=== PATIENT | female | born 1990 | race Caucasian/White ===

== ENCOUNTER 2022-03-01 18:45 | Emergency (ER) | payer OTHER, SELFPAY ==
--- NOTE | ~2022-03-01 | US_ITS ---
EXAMINATION: US OBSTETRICAL ULTRASOUND CLINICAL INFORMATION: Vaginal bleeding, positive hCG. LMP 01/29/2022 corresponding to a gestational age of 4 weeks and 3 days, [place] 11/05/2022. COMPARISON: No similar priors.. LMP: 01/29/2022. Gestational age by maternal dates is 4 weeks and 3 days. Estimated date of delivery by maternal dates is 11/05/2022. TECHNIQUE: Ultrasound of the maternal pelvis is performed using transabdominal and transvaginal transducers. Transvaginal imaging is performed due to inadequate visualization transabdominally. M-mode Doppler is also performed. FINDINGS: Anteverted uterus measuring 6.6 x 2.7 x 4 cm. The endometrium measures 0.6 cm in thickness. No evidence of intrauterine gestational sac. The ovaries are normal in morphology. The right ovary measures 2 x 1.2 x 2 cm and the left ovary measures 2.8 x 2.4 x 2.2 cm. There is a 1.4 cm corpus luteal cyst in the left ovary. No free fluid. US/US OB pelvic and transvaginal IMPRESSION: No sonographic evidence of intrauterine gestation which could be due to early gestational age. Recommend correlation with quantitative hCG and a short-term follow-up pelvic ultrasound. No adnexal mass. No free fluid.
[2022-03-01 19:01] VITALS: BP 134/73; PULSE 88; RESP 18; TEMP 36.7; O2SAT 100; BMI 34.5
--- NOTE | 2022-03-01 19:02 | ED_ITS ---
HPI - Abdominal Pain General Chief Complaint: Vaginal Bleeding <Coty Valle NP - Last Filed: 03/01/22 19:05> Stated Complaint: 4 weeks and bleeding <Coty Valle NP - Last Filed: 03/01/22 19:05> Time Seen by Provider: 03/01/22 20:48 <Coty Valle NP - Last Filed: 03/01/22 19:05> Source: patient <CLAUDE Forde - Last Filed: 03/02/22 00:26> Mode of arrival: ambulatory <CLAUDE Forde - Last Filed: 03/02/22 00:26> Limitations: no limitations <CLAUDE Forde - Last Filed: 03/02/22 00:26> History of Present Illness HPI narrative: 31-year-old female with no known medical history presents to the emergency department with complaints of vaginal bleeding that started today. According to patient she had a positive test on 02/25/2022, her last menstrual period was 01/29/2022. Patient reports intermittent crampy abdominal pain. She reports that she is spotting dark red/pink colored blood. She tells me she has not bled through any pads. She tells me she has been trying to get naturally. She has been taking vitamins every day. She has not yet seen director of casework however she is scheduled to see OBGYN on the . Patient has no known hyper or hypocoagulable disorders. Patient denies fevers, chills, nausea, vomiting, headache, vision changes, chest pain, shortness of breath, back pain, vaginal discharge <CLAUDE Forde - Last Filed: 03/02/22 00:26> Related Data Allergies/Adverse Reactions: Allergies Allergy/AdvReac Type Severity Reaction Status Date / Time No Known Allergies Allergy Verified 03/01/22 19:03 <Coty Valle NP - Last Filed: 03/01/22 19:05> Review of Systems Review of Systems Constitutional : No Weight loss, No Fever, No Chills, No Fatigue, No Malaise ENT/Mouth : No sore throat, No Rhinorrhea Eyes: No Eye Pain, No Swelling, No Redness Cardiovascular : No Chest Pain, No SOB, No Dyspnea on Exertion, No Orthopnea, No Edema, No Palpitations Respiratory : No Cough, No Sputum, No Wheezing Gastrointestinal : No Nausea, No Vomiting, No Diarrhea, No Constipation, + abdominal Pain, No Hematochezia, No Melena Genitourinary : No Dysuria, No Urinary Frequency, No Hematuria, + vaginal bleeding Musculoskeletal : No joint pain, No Myalgias, No Joint Swelling Skin : No Skin Lesions, No rash Neuro : No Weakness, No Numbness, No Dizziness, No Headache Psych : No Anxiety/Panic, No Depression Heme/Lymph: No Bruising, No Bleeding,No Lymphadenopathy Endocrine : No Polyuria, No Polydipsia All other systems reviewed and are negative <CLAUDE Forde - Last Filed: 03/02/22 00:26> Yes all other systems are reviewed and are negative <CLAUDE Forde - Last Filed: 03/02/22 00:26> [facility] Past Medical History Attestation statement: The following information was validated with the patient. <CLAUDE Forde - Last Filed: 03/02/22 00:26> Source: old records reviewed and nursing notes reviewed <CLAUDE Forde - Last Filed: 03/02/22 00:26> Social History Social History: Social History Advance Directives: No Advance Directives Information Provided: No <Coty Valle NP - Last Filed: 03/01/22 19:05> Physical Exam ED Vital Signs: Vital Signs - 24 hr 03/01/22 19:01 Temperature 98.0 F Pulse Rate 88 Respiratory Rate 18 Blood Pressure 134/73 Pulse Oximetry 100 Oxygen Delivery Method Room Air BMI result Body Mass Index 34.5 <Coty Valle NP - Last Filed: 03/01/22 19:05> Vital Signs - 24 hr 03/01/22 19:01 Temperature 98.0 F Pulse Rate 88 Respiratory Rate 18 Blood Pressure 134/73 Pulse Oximetry 100 Oxygen Delivery Method Room Air BMI result Body Mass Index 34.5 vss <CLAUDE Forde - Last Filed: 03/02/22 00:26> Appearance: Alert.? Oriented X3.? No acute distress.? Head: Normocephalic, atraumatic, no step-offs or deformities Eyes: Pupils equal, round and reactive to light.? ENT: Pharynx normal.? Neck: Normal inspection.? Neck supple.? CVS: Normal heart rate and rhythm.? Pulses normal.? Respiratory: No respiratory distress.? Breath sounds normal.? Abdomen: Soft and nontender.? Skin: Skin warm and dry.? Normal skin color.? Normal skin turgor.? Extremities: No lower extremity edema.? No calf ttp. 5/5 strength to bilateral upper and lower extremities Back: No midline tenderness, no C-spine tenderness, full range of motion, no CVA tenderness bilaterally Sensitive exam: Chaperoned by Quynh Jacobs. Patient's cervix appears slightly open no products of conception with in cervical os there is a [id number] amount of dark red blood within the vaginal canal. No lesions lumps or masses. No pain with bimanual exam. No adnexal tenderness. Neuro: Oriented X 3.? No motor deficit.? No sensory deficit. CN 2-12 intact <CLAUDE Forde - Last Filed: 03/02/22 00:26> Course Course Course Narrative: This is a rapid medical exam. Defer additional HPI, ROS and PE to prior provider.. 31 yo female healthy here with complaints of vaginal bleeding today. No abdominal pain or cramping. Patient's last menstrual period was 01/29. Patient had a home test that was positive on February 25. Patient has upcoming appointment with a OB doctor on March 15 at [facility] in [place]. Patient has not had any ultrasound her care to this point. Will obtain labs, UA. VSS <Coty Valle NP - Last Filed: 03/01/22 19:05> Reevaluation(s) Reevaluation #1: CBC appears to be within normal limits, no signs of anemia. Chemistry with no acute electrolyte abnormalities requiring intervention. Beta hCG 7, urine negative. UA without infection however, with large amount of blood likely secondary to vaginal bleeding. Pelvic ultrasound with no sonographic evidence of intrauterine gestation which could be due to early gestation age or again miscarriage. No adnexal mass. No free fluid. Patient is blood type A positive. Therefore patient does not require RhoGAM. I will have patient follow-up with OBGYN. Advised her to come in for repeat hCG and ultrasound in 48 hours. Gave her strict return precautions. Educated patient on diagnosis and treatment plan, answered all question, patient verbalizes understanding. At this time patient will be discharged home, advised to return with new or worsening symptoms. Educated on worrisome signs and symptoms and when to return. At this time I feel comfortable discharge home. To note this case was discussed with my attending who agrees w/ my diagnosis and treatment plan. <CLAUDE Forde - Last Filed: 03/02/22 00:26> Time: 00:21 <CLAUDE Forde - Last Filed: 03/02/22 00:26> Medical Decision Making Medical Decision Making MDM Narrative: 31-year-old female with a positive home test on February 25 last menstrual period on 01/29/2022 presents with vaginal spotting, lower abdominal cramping that is intermittent in nature. Is currently trying to get . Taking vitamins. Physical exam significant for Patient's cervix appears slightly open no products of conception with in cervical os there is a [id number] amount of dark red blood within the vaginal canal. No lesions lumps or masses. No pain with bimanual exam. No adnexal tenderness. To note patient's abdomen is not tender on exam Concerns for threatened or bleeding in 1st trimester verses menorrhagia. Based off patient's history and physical exam low suspicion for ovarian torsion, ectopic , intra-abdominal etiologies such as appendi citis, diverticulitis, pancreatitis or cholecystitis, no signs of acute abdomen. Plan at this time blood type, basic labs, hCG, imaging. <CLAUDE Forde - Last Filed: 03/02/22 00:26> Differential Diagnosis Differential Diagnoses: The differential diagnosis associated with the presentation includes <CLAUDE Forde Last Filed: 03/02/22 00:26> Concerns for threatened or bleeding in 1st trimester verses menorrhagia. Based off patient's history and physical exam low suspicion for ovarian torsion, ectopic , intra-abdominal etiologies such as appendicitis, diverticulitis, pancreatitis or cholecystitis, no signs of acute abdomen. <CLAUDE Forde - Last Filed: 03/02/22 00:26> Admission/Observation Consideration of admission/observation: Escalation of care including admission/observation considered <CLAUDE Forde - Last Filed: 03/02/22 00:26> Unlikely <CLAUDE Forde - Last Filed: 03/02/22 00:26> Lab Data MDM Lab Attestation statement: I reviewed the patient's lab results. <CLAUDE Forde - Last Filed: 03/02/22 00:26> Result Diagrams: 03/01/22 19:11 03/01/22 19:11 <Coty Valle NP - Last Filed: 03/01/22 19:05> Labs: Lab Results 03/01/22 03/01/22 03/01/22 Range/Units 19:11 19:11 19:25 WBC 10.5 (4.8-10.8) X10*3/uL RBC 4.31 (4.20-5.50) X10*6/uL Hgb 12.6 (12.0-16.0) g/dl Hct 37.7 (37.0-47.0) % MCV 87.5 (80.0-98.0) fL MCH 29.2 (27.0-33.0) pg MCHC 33.4 (31.0-35.0) g/dl RDW 13.4 (11.0-16.0) % Plt Count 338 (160-400) X10*3/uL MPV 9.8 (9.4-12.3) fL Immature Gran % (Auto) 0.2 (0.0-0.4) % Neut % (Auto) 52.8 (45-73) % Lymph % (Auto) 34.1 (20-40) % Payette % (Auto) 8.3 (2-11) % Eos % (Auto) 4.0 (0-4) % Baso % (Auto) 0.6 (0-2) % Lymph # (Auto) 3.6 (1.2-4.9) X10*3/uL Payette # (Auto) 0.9 (0.1-1.2) X10*3/uL Eos # (Auto) 0.4 (0.0-0.4) X10*3/uL Baso # (Auto) 0.1 (0.0-0.2) X10*3/uL Abs Immat Gran (auto) 0.02 (0.00-0.03) X10*3/uL Absolute Neuts (auto) 5.5 (2.0-8.3) x10*3/uL Absolute Nucleated RBC 0.000 (0.0-0.012) X10*3/uL Nucleated RBC % (auto) 0.0 (0.0-0.2) /100WBC Sodium 139 (135-145) mmol/L Potassium 4.1 (3.3-5.1) mmol/L Chloride 105 (96-108) mmol/L Carbon Dioxide 26 (22-29) mmol/L Anion Gap 12 (12-20) BUN 5 L (9-16) mg/dL Creatinine 0.68 (0.5-1.4) mg/dL Estim Creat Clear Calc 109.8 Estimated GFR > 60 Random Glucose 103 (60-115) mg/dL Calcium 9.2 (8.4-10.2) mg/dL Total Bilirubin 0.3 (0.0-1.0) mg/dL Direct Bilirubin < 0.2 (0.0-0.5) mg/dL AST 13 (5-31) U/L ALT 11 (0-31) U/L Alkaline Phosphatase 78 (39-117) U/L Total Protein 7.4 (6.5-8.0) g/dL Albumin 3.9 (3.5-5.0) g/dL Beta HCG, Quant 7 mIU/mL Urine Color Yellow Urine Appearance Clear Urine pH 7.0 (5.0-9.0) Ur Specific Kennard <= 1.005 (1.005-1.025) Urine Protein Negative (Neg-Trace) mg/dL Urine Glucose (UA) Negative (Negative) mg/dL Urine Ketones Negative (Negative) mg/dL Urine Blood Large (3+) H (Negative) Urine Nitrite Negative (Negative) Ur Leukocyte Esterase Moderate (2+) H (Negative) Urine RBC 6-10 H (0-2) /HPF Urine WBC 11-20 H (0-5) /HPF Ur Squamous Epith Cells 3-5 (0-2) /HPF Urine Bacteria None Seen (None Seen) Hyaline Casts 0-2 (0-2) /LPF Urine Test (NEGATIVE) Blood Type 03/01/22 03/01/22 Range/Units 19:25 22:42 WBC (4.8-10.8) X10*3/uL RBC (4.20-5.50) X10*6/uL Hgb (12.0-16.0) g/dl Hct (37.0-47.0) % MCV (80.0-98.0) fL MCH (27.0-33.0) pg MCHC (31.0-35.0) g/dl RDW (11.0-16.0) % Plt Count (160-400) X10*3/uL MPV (9.4-12.3) fL Immature Gran % (Auto) (0.0-0.4) % Neut % (Auto) (45-73) % Lymph % (Auto) (20-40) % Payette % (Auto) (2-11) % Eos % (Auto) (0-4) % Baso % (Auto) (0-2) % Lymph # (Auto) (1.2-4.9) X10*3/uL Payette # (Auto) (0.1-1.2) X10*3/uL Eos # (Auto) (0.0-0.4) X10*3/uL Baso # (Auto) (0.0-0.2) X10*3/uL Abs Immat Gran (auto) (0.00-0.03) X10*3/uL Absolute Neuts (auto) (2.0-8.3) x10*3/uL Absolute Nucleated RBC (0.0-0.012) X10*3/uL Nucleated RBC % (auto) (0.0-0.2) /100WBC Sodium (135-145) mmol/L Potassium (3.3-5.1) mmol/L Chloride (96-108) mmol/L Carbon Dioxide (22-29) mmol/L Anion Gap (12-20) BUN (9-16) mg/dL Creatinine (0.5-1.4) mg/dL Estim Creat Clear Calc Estimated GFR Random Glucose (60-115) mg/dL Calcium (8.4-10.2) mg/dL Total Bilirubin (0.0-1.0) mg/dL Direct Bilirubin (0.0-0.5) mg/dL AST (5-31) U/L ALT (0-31) U/L Alkaline Phosphatase (39-117) U/L Total Protein (6.5-8.0) g/dL Albumin (3.5-5.0) g/dL Beta HCG, Quant mIU/mL Urine Color Urine Appearance Urine pH (5.0-9.0) Ur Specific Kennard (1.005-1.025) Urine Protein (Neg-Trace) mg/dL Urine Glucose (UA) (Negative) mg/dL Urine Ketones (Negative) mg/dL Urine Blood (Negative) Urine Nitrite (Negative) Ur Leukocyte Esterase (Negative) Urine RBC (0-2) /HPF Urine WBC (0-5) /HPF Ur Squamous Epith Cells (0-2) /HPF Urine Bacteria (None Seen) Hyaline Casts (0-2) /LPF Urine Test NEGATIVE (NEGATIVE) Blood Type A Positive <Coty Valle NP - Last Filed: 03/01/22 19:05> Lab Results 03/01/22 03/01/22 03/01/22 Range/Units 19:11 19:11 19:25 WBC 10.5 (4.8-10.8) X10*3/uL RBC 4.31 (4.20-5.50) X10*6/uL Hgb 12.6 (12.0-16.0) g/dl Hct 37.7 (37.0-47.0) % MCV 87.5 (80.0-98.0) fL MCH 29.2 (27.0-33.0) pg MCHC 33.4 (31.0-35.0) g/dl RDW 13.4 (11.0-16.0) % Plt Count 338 (160-400) X10*3/uL MPV 9.8 (9.4-12.3) fL Immature Gran % (Auto) 0.2 (0.0-0.4) % Neut % (Auto) 52.8 (45-73) % Lymph % (Auto) 34.1 (20-40) % Payette % (Auto) 8.3 (2-11) % Eos % (Auto) 4.0 (0-4) % Baso % (Auto) 0.6 (0-2) % Lymph # (Auto) 3.6 (1.2-4.9) X10*3/uL Payette # (Auto) 0.9 (0.1-1.2) X10*3/uL Eos # (Auto) 0.4 (0.0-0.4) X10*3/uL Baso # (Auto) 0.1 (0.0-0.2) X10*3/uL Abs Immat Gran (auto) 0.02 (0.00-0.03) X10*3/uL Absolute Neuts (auto) 5.5 (2.0-8.3) x10*3/uL Absolute Nucleated RBC 0.000 (0.0-0.012) X10*3/uL Nucleated RBC % (auto) 0.0 (0.0-0.2) /100WBC Sodium 139 (135-145) mmol/L Potassium 4.1 (3.3-5.1) mmol/L Chloride 105 (96-108) mmol/L Carbon Dioxide 26 (22-29) mmol/L Anion Gap 12 (12-20) BUN 5 L (9-16) mg/dL Creatinine 0.68 (0.5-1.4) mg/dL Estim Creat Clear Calc 109.8 Estimated GFR > 60 Random Glucose 103 (60-115) mg/dL Calcium 9.2 (8.4-10.2) mg/dL Total Bilirubin 0.3 (0.0-1.0) mg/dL Direct Bilirubin < 0.2 (0.0-0.5) mg/dL AST 13 (5-31) U/L ALT 11 (0-31) U/L Alkaline Phosphatase 78 (39-117) U/L Total Protein 7.4 (6.5-8.0) g/dL Albumin 3.9 (3.5-5.0) g/dL Beta HCG, Quant 7 mIU/mL Urine Color Yellow Urine Appearance Clear Urine pH 7.0 (5.0-9.0) Ur Specific Kennard <= 1.005 (1.005-1.025) Urine Protein Negative (Neg-Trace) mg/dL Urine Glucose (UA) Negative (Negative) mg/dL Urine Ketones Negative (Negative) mg/dL Urine Blood Large (3+) H (Negative) Urine Nitrite Negative (Negative) Ur Leukocyte Esterase Moderate (2+) H (Negative) Urine RBC 6-10 H (0-2) /HPF Urine WBC 11-20 H (0-5) /HPF Ur Squamous Epith Cells 3-5 (0-2) /HPF Urine Bacteria None Seen (None Seen) Hyaline Casts 0-2 (0-2) /LPF Urine Test (NEGATIVE) Blood Type 03/01/22 03/01/22 Range/Units 19:25 22:42 WBC (4.8-10.8) X10*3/uL RBC (4.20-5.50) X10*6/uL Hgb (12.0-16.0) g/dl Hct (37.0-47.0) % MCV (80.0-98.0) fL MCH (27.0-33.0) pg MCHC (31.0-35.0) g/dl RDW (11.0-16.0) % Plt Count (160-400) X10*3/uL MPV (9.4-12.3) fL Immature Gran % (Auto) (0.0-0.4) % Neut % (Auto) (45-73) % Lymph % (Auto) (20-40) % Payette % (Auto) (2-11) % Eos % (Auto) (0-4) % Baso % (Auto) (0-2) % Lymph # (Auto) (1.2-4.9) X10*3/uL Payette # (Auto) (0.1-1.2) X10*3/uL Eos # (Auto) (0.0-0.4) X10*3/uL Baso # (Auto) (0.0-0.2) X10*3/uL Abs Immat Gran (auto) (0.00-0.03) X10*3/uL Absolute Neuts (auto) (2.0-8.3) x10*3/uL Absolute Nucleated RBC (0.0-0.012) X10*3/uL Nucleated RBC % (auto) (0.0-0.2) /100WBC Sodium (135-145) mmol/L Potassium (3.3-5.1) mmol/L Chloride (96-108) mmol/L Carbon Dioxide (22-29) mmol/L Anion Gap (12-20) BUN (9-16) mg/dL Creatinine (0.5-1.4) mg/dL Estim Creat Clear Calc Estimated GFR Random Glucose (60-115) mg/dL Calcium (8.4-10.2) mg/dL Total Bilirubin (0.0-1.0) mg/dL Direct Bilirubin (0.0-0.5) mg/dL AST (5-31) U/L ALT (0-31) U/L Alkaline Phosphatase (39-117) U/L Total Protein (6.5-8.0) g/dL Albumin (3.5-5.0) g/dL Beta HCG, Quant mIU/mL Urine Color Urine Appearance Urine pH (5.0-9.0) Ur Specific Kennard (1.005-1.025) Urine Protein (Neg-Trace) mg/dL Urine Glucose (UA) (Negative) mg/dL Urine Ketones (Negative) mg/dL Urine Blood (Negative) Urine Nitrite (Negative) Ur Leukocyte Esterase (Negative) Urine RBC (0-2) /HPF Urine WBC (0-5) /HPF Ur Squamous Epith Cells (0-2) /HPF Urine Bacteria (None Seen) Hyaline Casts (0-2) /LPF Urine Test NEGATIVE (NEGATIVE) Blood Type A Positive <CLAUDE Forde - Last Filed: 03/02/22 00:26> Independent Interpretation I performed an independent interpretation of an: Ultrasound <CLAUDE Forde - Last Filed: 03/02/22 00:26> Radiology Impression Discussion of test interpretation with radiology: I have reviewed the radiologist's reading. <CLAUDE Forde Last Filed: 03/02/22 00:26> Core Measures AMI core measures followed: Yes <CLAUDE Forde Last Filed: 03/02/22 00:26> Measure exclusions: not indicated <CLAUDE Forde Last Filed: 03/02/22 00:26> Critical Care Time Critical Care Time Critical Care Time: No <CLAUDE Forde - Last Filed: 03/02/22 00:26> Discharge Plan Discharge Clinical Impression: Threatened , Vaginal bleeding <Coty Valle NP - Last Filed: 03/01/22 19:05> Patient Disposition: Home, Self-Care <Coty Valle NP - Last Filed: 03/01/22 19:05> Instructions: Threatened Miscarriage (ED) <Coty Valle NP - Last Filed: 03/01/22 19:05> Additional Instructions: Take your medications as prescribed. If you were prescribed antibiotics today, it is important that you take your medication to their entirety, do not skip any doses, do not finish them early. Follow-up with your primary care provider this week. Return to the emergency department with new or worsening symptoms. Such as fevers, chills, chest pain, shortness of breath, nausea, vomiting, dizziness, headache, vision changes, lethargy In case of emergency call 911 Take Tylenol as needed for discomfort do not exceed maximum daily dose. Your beta hCG today was 7. Your blood type was A positive. Ultrasound results below. There was no signs of anemia or infection on your labs today. You should have repeat beta HCG done in 48 hours and you should also have a repeat ultrasound. Please follow-up with OBGYN as soon as possible. Continue taking her vitamins. If you are bleeding through more than 2 pads in 1 hour, if you have worsening abdominal pain or a change in the quality of the pain you need to seek medical attention immediately. Other things to look out for that would also require immediate medical attention include fevers, chills, back pain, nausea, vomiting or worsening pain <Coty Valle NP - Last Filed: 03/01/22 19:05> Referrals: Physician,None [Primary Care Provider] - 2 days <Coty Valle NP - Last Filed: 03/01/22 19:05> Stand Alone Forms: Work/School Release <Coty Valle NP - Last Filed: 03/01/22 19:05>
[2022-03-01 19:15] LABS: MANUAL DIFF FLAG NO
[2022-03-01 19:19] LABS: Basophils Absolute Auto 0.1 X10*3/uL (0.0-0.2); Basophils Percent Auto 0.6 % (0-2); Eosinophils Absolute Auto 0.4 X10*3/uL (0.0-0.4); Hematocrit 37.7 % (37.0-47.0); Hemoglobin 12.6 g/dl (12.0-16.0); Imm Gran Abs Auto 0.02 X10*3/uL (0.00-0.03); Imm Gran Pct Auto 0.2 % (0.0-0.4); Lymphocytes Absolute Auto 3.6 X10*3/uL (1.2-4.9); Lymphocytes Percent Auto 34.1 % (20-40); Mean Corpuscular HGB Conc 33.4 g/dl (31.0-35.0); Mean Corpuscular Hemoglobin 29.2 pg (27.0-33.0); Mean Corpuscular Volume 87.5 fL (80.0-98.0); Mean Platelet Volume 9.8 fL (9.4-12.3); Monocytes Absolute Auto 0.9 X10*3/uL (0.1-1.2); Monocytes Percent Auto 8.3 % (2-11); Neutrophils Absolute Auto 5.5 x10*3/uL (2.0-8.3); Neutrophils Percent Auto 52.8 % (45-73); Platelet Count 338 X10*3/uL (160-400); Red Blood Count 4.31 X10*6/uL (4.20-5.50); Red Cell Distribution Width 13.4 % (11.0-16.0); White Blood Count 10.5 X10*3/uL (4.8-10.8)
[2022-03-01 19:34] LABS: UPreg QC Valid YES; Urine Pregnancy NEGATIVE (NEGATIVE)
[2022-03-01 19:37] LABS: Appearance Urine Clear; Color Urine Yellow; Glucose Urine UA Negative (Negative); Leukocyte Esterase Urine Moderate (2+) (Negative); Nitrite Urine Negative (Negative); Specific Gravity - Urine <= 1.005 (1.005-1.025); UMIC TRIGGER UACC YES; Urine Blood Large (3+) (Negative); Urine Ketones Negative (Negative); Urine Protein Negative (Neg-Trace)
[2022-03-01 19:39] LABS: Bacteria Urine None Seen (None Seen); Hyaline Casts Urine 0-2 /LPF (0-2); UACC Culture Trigger YES
[2022-03-01 19:39] LABS: Alanine Aminotransferase 11 U/L (0-31); Albumin Level 3.9 g/dL (3.5-5.0); Alkaline Phosphatase 78 U/L (39-117); Anion Gap 12 (12-20); Aspartate Amino Transferase 13 U/L (5-31); Bilirubin Direct < 0.2 mg/dL (0.0-0.5); Bilirubin Total 0.3 mg/dL (0.0-1.0); Blood Urea Nitrogen 5 mg/dL (9-16); Calcium 9.2 mg/dL (8.4-10.2); Carbon Dioxide 26 mmol/L (22-29); Chloride 105 mmol/L (96-108); Creatinine Clr Calc Pharmacy 109.8; Estimated Glomerular Filt Rate > 60; Glucose Random 103 mg/dL (60-115); HCG Quantitative 7 mIU/mL; Potassium 4.1 mmol/L (3.3-5.1); Sodium 139 mmol/L (135-145); Total Protein 7.4 g/dL (6.5-8.0)
== END 2022-03-02 00:40 | disposition home or self-care (01) ==
PROVIDERS: Nurse Practitioner Family; Emergency Provider Emergency Medicine
DX: O20.0 Threatened abortion (principal); N93.8 Other specified abnormal uterine and vaginal bleeding; Z3A.01 Less than 8 weeks gestation of pregnancy; Z79.899 Other long term (current) drug therapy
CPT/HCPCS: 36415; 76801; 76817; 80048; 80076; 81001; 81025; 84702; 85025; 86900; 86901; 87086; 99284

== ENCOUNTER 2022-05-20 16:53 | Emergency (ER) | payer OTHER, SELFPAY ==
--- NOTE | ~2022-05-20 | US_ITS ---
EXAMINATION: US ABDOMEN LIMITED CLINICAL INFORMATION: Right upper quadrant pain. COMPARISON: None available. TECHNIQUE: Real-time imaging of the right upper quadrant abdominal viscera. FINDINGS: PANCREAS: Pancreatic head and body are normal. The tail is obscured by bowel gas. LIVER: Hepatic cyst measuring 5 mm in the right inferior lower lobe of liver. No suspicious liver lesions.. The liver is normal in size. The liver contour is normal. Parenchymal echogenicity is normal. There is no intrahepatic biliary duct dilatation seen. GALLBLADDER: Status post cholecystectomy COMMON BILE DUCT: Normal in caliber measuring 0.3 cm in diameter. RIGHT KIDNEY: Normal. No hydronephrosis. No renal calculi or suspicious focal parenchymal lesions. 3 mm cortical cyst upper pole right kidney. No follow-up imaging is recommended for simple renal cyst. The kidney measures 9.6 cm in maximum dimension. FREE FLUID: None. US/US abdomen limited IMPRESSION: No acute abnormality. Status post cholecystectomy. No bile duct dilatation.
--- NOTE | ~2022-05-20 | US_ITS ---
EXAMINATION: US OBSTETRICAL ULTRASOUND CLINICAL INFORMATION: Right lower quadrant pain. Positive test. Quantitative beta hCG pending. COMPARISON: Obstetrical ultrasound dated 03/01/2022.. LMP: 01/29/2023. Gestational age by maternal dates is 3 weeks and 5 days. Estimated date of delivery by maternal dates is 01/29/2023. TECHNIQUE: First trimester obstetrical ultrasound was performed. FINDINGS: The uterus is normal in size. Endometrial stripe appears slightly heterogeneous and measures 0.9 cm in diameter. No definite intrauterine gestational sac is seen. There may be a small amount of endometrial complex free fluid. MATERNAL ADNEXA: The right maternal ovary measures 2.3 x 2 x 2.4 cm. There is a 1 cm diameter mildly complex cyst in the right ovary with prominent peripheral ring of enhancement, possibly a corpus luteum cyst. The left maternal ovary measures 2.7 x 1.2 x 1.1 cm. Left ovary appears normal. There is no significant maternal adnexal mass. No maternal pelvic ascites. US/US OB pelvic and transvaginal IMPRESSION: 1. No intrauterine or adnexal gestation is identified, likely related to early age of gestation. Close clinical correlation and follow-up with serial beta-hCG and ultrasound is recommended. 2. No maternal adnexal mass or pelvic ascites.
[2022-05-20 17:16] VITALS: BP 133/78; PULSE 86; RESP 16; TEMP 37.1; O2SAT 98; BMI 33.7
--- NOTE | 2022-05-20 17:16 | ED_ITS ---
HPI - Abdominal Pain General Chief Complaint: Abdominal Pain <CLAUDE Palma - Last Filed: 05/20/22 17:19> Stated Complaint: abd pain right side <CLAUDE Palma - Last Filed: 05/20/22 17:19> Time Seen by Provider: 05/20/22 19:25 <CLAUDE Palma - Last Filed: 05/20/22 17:19> Source: patient <Shauna Hummel MD - Last Filed: 05/20/22 22:00> Mode of arrival: ambulatory <Shauna Hummel MD - Last Filed: 05/20/22 22:00> History of Present Illness HPI narrative: This is a 31-year-old female without significant past medical history although she does have a history of renal colic comes in with 2 days of intermittent sharp pain located at the right lower quadrant, she states she took a home test which was positive, LMP-04/24/2022, she denies any dysuria/fever/chills/nausea/vomiting/diarrhea. Patient states that the pain became much worse this afternoon. <Shauna Hummel MD - Last Filed: 05/20/22 22:00> Related Data Allergies/Adverse Reactions: Allergies Allergy/AdvReac Type Severity Reaction Status Date / Time No Known Allergies Allergy Verified 03/01/22 19:03 <CLAUDE Palma - Last Filed: 05/20/22 17:19> Review of Systems Review of Systems Pertinent positives and negatives as stated in HPI <Shauna Hummel MD - Last Filed: 05/20/22 22:00> PMFSH Past Medical History Source: nursing notes reviewed <Shauna Hummel MD - Last Filed: 05/20/22 22:00> Social History Social History: Social History Advance Directives: No Advance Directives Information Provided: No <CLAUDE Palma - Last Filed: 05/20/22 17:19> Physical Exam ED Vital Signs: Vital Signs - 24 hr 05/20/22 17:16 05/20/22 20:00 Temperature 98.8 F Pulse Rate 86 73 Respiratory Rate 16 17 Blood Pressure 133/78 102/64 Pulse Oximetry 98 98 Oxygen Delivery Method Room Air Room Air BMI result Body Mass Index 33.7 <CLAUDE Palma - Last Filed: 05/20/22 17:19> Vital Signs - 24 hr 05/20/22 17:16 05/20/22 20:00 Temperature 98.8 F Pulse Rate 86 73 Respiratory Rate 16 17 Blood Pressure 133/78 102/64 Pulse Oximetry 98 98 Oxygen Delivery Method Room Air Room Air BMI result Body Mass Index 33.7 VITAL SIGNS: Reviewed. GENERAL: Well developed, well nourished, in no acute distress. HEAD: Normocephalic/atraumatic EYES: PERRLA, EOMI EARS: Ext canals without abnormality LUNGS: Normal breath sounds. No adventitious sounds or accessory muscle use. SpO2<98> CARDIOVASCULAR: Regular rate and rhythm without noted murmurs. ABDOMEN: Soft, non-tender, non-distended with bowel sounds, no CVA tenderness, no acute abdomen MUSCULOSKELETAL: No tenderness, deformities, or effusions noted on gross inspection. EXTREMITIES: No cyanosis, clubbing or edema. SKIN: Inspection of the skin reveals no rashes NEUROLOGIC: Alert and oriented x 4. Strength and sensation to light touch were grossly intact x 4. <Shauna Hummel MD - Last Filed: 05/20/22 22:00> Course Course Course Narrative: RME - 31 yo female presents to the ER for evaluation of worsening right flank pain that started yesterday. No N/V/D or urinary symptoms. Reports the pain comes and goes in waves, sometimes radiates to the back. Pain was worse with eating today. +RUQ tenderness on exam. Plan: labs, UA and RUQ U/S <CLAUDE Palma - Last Filed: 05/20/22 17:19> Medical Decision Making Medical Decision Making MDM Narrative: 31-year-old female with history and clinical presentation after review of all investigations my interpretation is as patient likely has an ectopic that I do not suspect is a ruptured at this time will proceed with OB ultrasound and quantitative hCG she is otherwise hemodynamically stable and comfortable. I explained all results to the patient, there is no IUP identified but neither is there any evidence to suggest ectopic. This is likely secondary to early gestation. Patient was instructed to follow-up with the OBGYN by calling the office in the morning. <Shauna Hummel MD - Last Filed: 05/20/22 22:00> Differential Diagnosis Please see the discussion above <Shauna Hummel MD - Last Filed: 05/20/22 22:00> Lab Data Please see the discussion above <Shauna Hummel MD - Last Filed: 05/20/22 22:00> Result Diagrams: 05/20/22 18:02 05/20/22 18:02 <CLAUDE Palma - Last Filed: 05/20/22 17:19> Labs: Lab Results 05/20/22 05/20/22 05/20/22 Range/Units 18:02 18:02 19:53 WBC 10.8 (4.8-10.8) X10*3/uL RBC 4.27 (4.20-5.50) X10*6/uL Hgb 12.6 (12.0-16.0) g/dl Hct 37.5 (37.0-47.0) % MCV 87.8 (80.0-98.0) fL MCH 29.5 (27.0-33.0) pg MCHC 33.6 (31.0-35.0) g/dl RDW 12.7 (11.0-16.0) % Plt Count 328 (160-400) X10*3/uL MPV 9.7 (9.4-12.3) fL Immature Gran % (Auto) 0.2 (0.0-0.4) % Neut % (Auto) 55.8 (45-73) % Lymph % (Auto) 32.2 (20-40) % Sawyer % (Auto) 8.7 (2-11) % Eos % (Auto) 2.6 (0-4) % Baso % (Auto) 0.5 (0-2) % Lymph # (Auto) 3.5 (1.2-4.9) X10*3/uL Sawyer # (Auto) 0.9 (0.1-1.2) X10*3/uL Eos # (Auto) 0.3 (0.0-0.4) X10*3/uL Baso # (Auto) 0.1 (0.0-0.2) X10*3/uL Abs Immat Gran (auto) 0.02 (0.00-0.03) X10*3/uL Absolute Neuts (auto) 6.1 (2.0-8.3) x10*3/uL Absolute Nucleated RBC 0.000 (0.0-0.012) X10*3/uL Nucleated RBC % (auto) 0.0 (0.0-0.2) /100WBC Sodium 136 (135-145) mmol/L Potassium 4.1 (3.3-5.1) mmol/L Chloride 104 (96-108) mmol/L Carbon Dioxide 26 (22-29) mmol/L Anion Gap 10 L (12-20) BUN 6 L (9-16) mg/dL Creatinine 0.71 (0.5-1.4) mg/dL Estim Creat Clear Calc 102.8 Estimated GFR > 60 Random Glucose 86 (60-115) mg/dL Calcium 9.1 (8.4-10.2) mg/dL Magnesium 1.9 (1.6-2.6) mg/dL Total Bilirubin 0.4 (0.0-1.0) mg/dL Direct Bilirubin < 0.2 (0.0-0.5) mg/dL AST 15 (5-31) U/L ALT 10 (0-31) U/L Alkaline Phosphatase 65 (39-117) U/L Total Protein 7.0 (6.5-8.0) g/dL Albumin 4.0 (3.5-5.0) g/dL Beta HCG, Quant 118 mIU/mL Urine Color Yellow Urine Appearance Clear Urine pH 6.0 (5.0-9.0) Ur Specific [place] 1.020 (1.005-1.025) Urine Protein Negative (Neg-Trace) mg/dL Urine Glucose (UA) Negative (Negative) mg/dL Urine Ketones Negative (Negative) mg/dL Urine Blood Small (1+) H (Negative) Urine Nitrite Negative (Negative) Ur Leukocyte Esterase Trace H (Negative) Urine RBC >20 H (0-2) /HPF Urine WBC 0-5 (0-5) /HPF Ur Squamous Epith Cells 3-5 (0-2) /HPF Urine Bacteria None Seen (None Seen) Hyaline Casts 0-2 (0-2) /LPF Urine Test (NEGATIVE) 05/20/22 Range/Units 19:53 WBC (4.8-10.8) X10*3/uL RBC (4.20-5.50) X10*6/uL Hgb (12.0-16.0) g/dl Hct (37.0-47.0) % MCV (80.0-98.0) fL MCH (27.0-33.0) pg MCHC (31.0-35.0) g/dl RDW (11.0-16.0) % Plt Count (160-400) X10*3/uL MPV (9.4-12.3) fL Immature Gran % (Auto) (0.0-0.4) % Neut % (Auto) (45-73) % Lymph % (Auto) (20-40) % Sawyer % (Auto) (2-11) % Eos % (Auto) (0-4) % Baso % (Auto) (0-2) % Lymph # (Auto) (1.2-4.9) X10*3/uL Sawyer # (Auto) (0.1-1.2) X10*3/uL Eos # (Auto) (0.0-0.4) X10*3/uL Baso # (Auto) (0.0-0.2) X10*3/uL Abs Immat Gran (auto) (0.00-0.03) X10*3/uL Absolute Neuts (auto) (2.0-8.3) x10*3/uL Absolute Nucleated RBC (0.0-0.012) X10*3/uL Nucleated RBC % (auto) (0.0-0.2) /100WBC Sodium (135-145) mmol/L Potassium (3.3-5.1) mmol/L Chloride (96-108) mmol/L Carbon Dioxide (22-29) mmol/L Anion Gap (12-20) BUN (9-16) mg/dL Creatinine (0.5-1.4) mg/dL Estim Creat Clear Calc Estimated GFR Random Glucose (60-115) mg/dL Calcium (8.4-10.2) mg/dL Magnesium (1.6-2.6) mg/dL Total Bilirubin (0.0-1.0) mg/dL Direct Bilirubin (0.0-0.5) mg/dL AST (5-31) U/L ALT (0-31) U/L Alkaline Phosphatase (39-117) U/L Total Protein (6.5-8.0) g/dL Albumin (3.5-5.0) g/dL Beta HCG, Quant mIU/mL Urine Color Urine Appearance Urine pH (5.0-9.0) Ur Specific [place] (1.005-1.025) Urine Protein (Neg-Trace) mg/dL Urine Glucose (UA) (Negative) mg/dL Urine Ketones (Negative) mg/dL Urine Blood (Negative) Urine Nitrite (Negative) Ur Leukocyte Esterase (Negative) Urine RBC (0-2) /HPF Urine WBC (0-5) /HPF Ur Squamous Epith Cells (0-2) /HPF Urine Bacteria (None Seen) Hyaline Casts (0-2) /LPF Urine Test POSITIVE H (NEGATIVE) <CLAUDE Palma - Last Filed: 05/20/22 17:19> Lab Results 05/20/22 05/20/22 05/20/22 Range/Units 18:02 18:02 19:53 WBC 10.8 (4.8-10.8) X10*3/uL RBC 4.27 (4.20-5.50) X10*6/uL Hgb 12.6 (12.0-16.0) g/dl Hct 37.5 (37.0-47.0) % MCV 87.8 (80.0-98.0) fL MCH 29.5 (27.0-33.0) pg MCHC 33.6 (31.0-35.0) g/dl RDW 12.7 (11.0-16.0) % Plt Count 328 (160-400) X10*3/uL MPV 9.7 (9.4-12.3) fL Immature Gran % (Auto) 0.2 (0.0-0.4) % Neut % (Auto) 55.8 (45-73) % Lymph % (Auto) 32.2 (20-40) % Sawyer % (Auto) 8.7 (2-11) % Eos % (Auto) 2.6 (0-4) % Baso % (Auto) 0.5 (0-2) % Lymph # (Auto) 3.5 (1.2-4.9) X10*3/uL Sawyer # (Auto) 0.9 (0.1-1.2) X10*3/uL Eos # (Auto) 0.3 (0.0-0.4) X10*3/uL Baso # (Auto) 0.1 (0.0-0.2) X10*3/uL Abs Immat Gran (auto) 0.02 (0.00-0.03) X10*3/uL Absolute Neuts (auto) 6.1 (2.0-8.3) x10*3/uL Absolute Nucleated RBC 0.000 (0.0-0.012) X10*3/uL Nucleated RBC % (auto) 0.0 (0.0-0.2) /100WBC Sodium 136 (135-145) mmol/L Potassium 4.1 (3.3-5.1) mmol/L Chloride 104 (96-108) mmol/L Carbon Dioxide 26 (22-29) mmol/L Anion Gap 10 L (12-20) BUN 6 L (9-16) mg/dL Creatinine 0.71 (0.5-1.4) mg/dL Estim Creat Clear Calc 102.8 Estimated GFR > 60 Random Glucose 86 (60-115) mg/dL Calcium 9.1 (8.4-10.2) mg/dL Magnesium 1.9 (1.6-2.6) mg/dL Total Bilirubin 0.4 (0.0-1.0) mg/dL Direct Bilirubin < 0.2 (0.0-0.5) mg/dL AST 15 (5-31) U/L ALT 10 (0-31) U/L Alkaline Phosphatase 65 (39-117) U/L Total Protein 7.0 (6.5-8.0) g/dL Albumin 4.0 (3.5-5.0) g/dL Beta HCG, Quant 118 mIU/mL Urine Color Yellow Urine Appearance Clear Urine pH 6.0 (5.0-9.0) Ur Specific [place] 1.020 (1.005-1.025) Urine Protein Negative (Neg-Trace) mg/dL Urine Glucose (UA) Negative (Negative) mg/dL Urine Ketones Negative (Negative) mg/dL Urine Blood Small (1+) H (Negative) Urine Nitrite Negative (Negative) Ur Leukocyte Esterase Trace H (Negative) Urine RBC >20 H (0-2) /HPF Urine WBC 0-5 (0-5) /HPF Ur Squamous Epith Cells 3-5 (0-2) /HPF Urine Bacteria None Seen (None Seen) Hyaline Casts 0-2 (0-2) /LPF Urine Test (NEGATIVE) 05/20/22 Range/Units 19:53 WBC (4.8-10.8) X10*3/uL RBC (4.20-5.50) X10*6/uL Hgb (12.0-16.0) g/dl Hct (37.0-47.0) % MCV (80.0-98.0) fL MCH (27.0-33.0) pg MCHC (31.0-35.0) g/dl RDW (11.0-16.0) % Plt Count (160-400) X10*3/uL MPV (9.4-12.3) fL Immature Gran % (Auto) (0.0-0.4) % Neut % (Auto) (45-73) % Lymph % (Auto) (20-40) % Sawyer % (Auto) (2-11) % Eos % (Auto) (0-4) % Baso % (Auto) (0-2) % Lymph # (Auto) (1.2-4.9) X10*3/uL [place]yer # (Auto) (0.1-1.2) X10*3/uL Eos # (Auto) (0.0-0.4) X10*3/uL Baso # (Auto) (0.0-0.2) X10*3/uL Abs Immat Gran (auto) (0.00-0.03) X10*3/uL Absolute Neuts (auto) (2.0-8.3) x10*3/uL Absolute Nucleated RBC (0.0-0.012) X10*3/uL Nucleated RBC % (auto) (0.0-0.2) /100WBC Sodium (135-145) mmol/L Potassium (3.3-5.1) mmol/L Chloride (96-108) mmol/L Carbon Dioxide (22-29) mmol/L Anion Gap (12-20) BUN (9-16) mg/dL Creatinine (0.5-1.4) mg/dL Estim Creat Clear Calc Estimated GFR Random Glucose (60-115) mg/dL Calcium (8.4-10.2) mg/dL Magnesium (1.6-2.6) mg/dL Total Bilirubin (0.0-1.0) mg/dL Direct Bilirubin (0.0-0.5) mg/dL AST (5-31) U/L ALT (0-31) U/L Alkaline Phosphatase (39-117) U/L Total Protein (6.5-8.0) g/dL Albumin (3.5-5.0) g/dL Beta HCG, Quant mIU/mL Urine Color Urine Appearance Urine pH (5.0-9.0) Ur Specific [place] (1.005-1.025) Urine Protein (Neg-Trace) mg/dL Urine Glucose (UA) (Negative) mg/dL Urine Ketones (Negative) mg/dL Urine Blood (Negative) Urine Nitrite (Negative) Ur Leukocyte Esterase (Negative) Urine RBC (0-2) /HPF Urine WBC (0-5) /HPF Ur Squamous Epith Cells (0-2) /HPF Urine Bacteria (None Seen) Hyaline Casts (0-2) /LPF Urine Test POSITIVE H (NEGATIVE) <Shauna Hummel MD - Last Filed: 05/20/22 22:00> Radiology Impression Radiologist Impression: My interpretation is in agreement with radiology's impression of the imaging study <Shauna Hummel MD - Last Filed: 05/20/22 22:00> Discharge Plan Discharge Clinical Impression: Early stage of <CLAUDE Palma - Last Filed: 05/20/22 17:19> Patient Disposition: Home, Self-Care <CLAUDE Palma - Last Filed: 05/20/22 17:19> Instructions: (ED) <CLAUDE Palma - Last Filed: 05/20/22 17:19> Additional Instructions: 1. Start taking vitamins, recommend Tylenol for any pain as well as heating pads. 2. It is very important that you call the control clerk food and beverage here at [facility] 1st thing in the morning as you will need a follow-up appointment to get another ultrasound as well as further testing. It is too early at this time to know whether not the is in the correct location. A referral has been provided to you below Please do not hesitate to return to the emergency room should you experience increasing pain without resolution with heating pads and Tylenol or you began feeling heart palpitations or experiencing significant vaginal bleeding. <CLAUDE Palma - Last Filed: 05/20/22 17:19> Referrals: Chely Michael CNM [Certified Nurse Administrative Operations Coordinator] - <CLAUDE Palma - Last Filed: 05/20/22 17:19>
[2022-05-20 18:06] LABS: MANUAL DIFF FLAG NO
[2022-05-20 18:07] LABS: Basophils Absolute Auto 0.1 X10*3/uL (0.0-0.2); Basophils Percent Auto 0.5 % (0-2); Eosinophils Absolute Auto 0.3 X10*3/uL (0.0-0.4); Eosinophils Percent Auto 2.6 % (0-4); Hematocrit 37.5 % (37.0-47.0); Hemoglobin 12.6 g/dl (12.0-16.0); Imm Gran Abs Auto 0.02 X10*3/uL (0.00-0.03); Imm Gran Pct Auto 0.2 % (0.0-0.4); Lymphocytes Absolute Auto 3.5 X10*3/uL (1.2-4.9); Lymphocytes Percent Auto 32.2 % (20-40); Mean Corpuscular HGB Conc 33.6 g/dl (31.0-35.0); Mean Corpuscular Hemoglobin 29.5 pg (27.0-33.0); Mean Corpuscular Volume 87.8 fL (80.0-98.0); Mean Platelet Volume 9.7 fL (9.4-12.3); Monocytes Absolute Auto 0.9 X10*3/uL (0.1-1.2); Monocytes Percent Auto 8.7 % (2-11); Neutrophils Absolute Auto 6.1 x10*3/uL (2.0-8.3); Neutrophils Percent Auto 55.8 % (45-73); Platelet Count 328 X10*3/uL (160-400); Red Blood Count 4.27 X10*6/uL (4.20-5.50); Red Cell Distribution Width 12.7 % (11.0-16.0); White Blood Count 10.8 X10*3/uL (4.8-10.8)
[2022-05-20 18:41] LABS: Alanine Aminotransferase 10 U/L (0-31); Alkaline Phosphatase 65 U/L (39-117); Anion Gap 10 (12-20); Aspartate Amino Transferase 15 U/L (5-31); Bilirubin Direct < 0.2 mg/dL (0.0-0.5); Bilirubin Total 0.4 mg/dL (0.0-1.0); Blood Urea Nitrogen 6 mg/dL (9-16); Calcium 9.1 mg/dL (8.4-10.2); Carbon Dioxide 26 mmol/L (22-29); Chloride 104 mmol/L (96-108); Creatinine Clr Calc Pharmacy 102.8; Estimated Glomerular Filt Rate > 60; Glucose Random 86 mg/dL (60-115); Magnesium 1.9 mg/dL (1.6-2.6); Potassium 4.1 mmol/L (3.3-5.1); Sodium 136 mmol/L (135-145)
[2022-05-20 20:00] VITALS: BP 102/64; PULSE 73; RESP 17; O2SAT 98
[2022-05-20 20:01] LABS: Appearance Urine Clear; Color Urine Yellow; Glucose Urine UA Negative (Negative); Leukocyte Esterase Urine Trace (Negative); Nitrite Urine Negative (Negative); UMIC TRIGGER UACC YES; Urine Blood Small (1+) (Negative); Urine Ketones Negative (Negative); Urine Protein Negative (Neg-Trace)
[2022-05-20 20:02] LABS: UPreg QC Valid YES; Urine Pregnancy POSITIVE (NEGATIVE)
[2022-05-20 20:03] LABS: Bacteria Urine None Seen (None Seen); Hyaline Casts Urine 0-2 /LPF (0-2); RBC Urine >20 /HPF (0-2); WBC Urine 0-5 /HPF (0-5)
[2022-05-20 20:58] LABS: HCG Quantitative 118 mIU/mL
[2022-05-20] MEDS: Acetaminophen 325 MG TABLET 975 MG PO (22:10)
== END 2022-05-20 22:18 | disposition home or self-care (01) ==
PROVIDERS: Physician Assistant; Emergency Provider Student in an Organized Health Care Education/Training Program
DX: R10.31 Right lower quadrant pain (principal); R10.2 Pelvic and perineal pain; Z79.899 Other long term (current) drug therapy
CPT/HCPCS: 36415; 76705; 76801; 76817; 80048; 80076; 81001; 81003; 81025; 83735; 84702; 85025; 99284